=== PATIENT | male | born 1955 | race African-American/Black ===

== ENCOUNTER 2020-03-07 13:55 | Inpatient (IN) | payer SELFPAY ==
[~2020-03-07] VITALS: Ht 180.3 cm; Wt 77.1 kg
[2020-03-07 16:08] LABS: CALCIUM 8.9 mg/dL (8.5-10.1); CHLORIDE SERUM 100 mmol/L (98-107); CREATININE SERUM 1.1 mg/dL (0.7-1.3); GFR1 > 60 mL/min; GLUCOSE SERUM 85 mg/dL (74-106); POTASSIUM SERUM 3.8 mmol/L (3.5-5.1); SODIUM SERUM 135 mmol/L (136-145)
[2020-03-07 16:13] LABS: ALBUMIN 2.6 g/dL (3.4-5.0); ALKALINE PHOSPHATASE 105 U/L (46-116); ALT/SGPT 45 U/L (16-63); AST/SGOT 86 U/L (15-37); BILIRUBIN TOTAL 0.29 mg/dL (0.20-1.00); CHOLESTEROL 130 mg/dL (<200); TOTAL PROTEIN, SERUM 7.7 g/dL (6.4-8.2)
[2020-03-07 16:46] LABS: PLATELET COUNT 343 x10^3mcL (130-400); RED CELL DISTRIBUTION WIDTH 12.9 % (11.5-14.5)
[2020-03-07 18:19] LABS: MONOCYTE 20 % (0-7); SEGMENTED NEUTROPHILS 68 % (37-75)
[2020-03-07 18:20] LABS: PLATELET MORPHOLOGY PLATELETS NORMAL; rbc morphology (normal/abnorm) NORMAL (NORMAL)
[2020-03-07 22:11] LABS: APPEARANCE CSF CLEAR; COLOR CSF COLORLESS; WBC CSF 2 /cumm (0-5)
[2020-03-07 22:12] LABS: RBC CSF 85 /cumm (0)
[2020-03-07 22:23] LABS: APPEARANCE CSF CLEAR; COLOR CSF COLORLESS; RBC CSF 3 /cumm (0); WBC CSF 2 /cumm (0-5)
[2020-03-07 22:34] LABS: TOTAL PROTEIN CSF 26.6 mg/dL (15-45)
[2020-03-07 22:52] LABS: AMPHETAMINE QUAL UR NONE DETECTED (See below)
[2020-03-08 08:13] LABS: MAGNESIUM 2.9 mg/dL (1.8-2.4); PHOSPHOROUS 4.2 mg/dL (2.5-4.9)
[2020-03-08 08:18] LABS: T3 TOTAL 0.82 ng/mL
[2020-03-08 08:20] LABS: CHOLESTEROL/HDL RATIO 3.8
[2020-03-08 11:33] LABS: PLATELET COUNT 379 x10^3mcL (130-400); RED CELL DISTRIBUTION WIDTH 11.9 % (11.5-14.5)
[2020-03-08 11:52] LABS: BASOPHIL % 0.6 % (0-2)
[2020-03-08 12:31] LABS: CALCIUM 8.3 mg/dL (8.5-10.1); CARBON DIOXIDE 22.4 mmol/L (21-32); CHLORIDE SERUM 103 mmol/L (98-107); GFR1 > 60 mL/min; GLUCOSE SERUM 114 mg/dL (74-106); POTASSIUM SERUM 3.6 mmol/L (3.5-5.1); SODIUM SERUM 138 mmol/L (136-145)
[2020-03-08 13:29] VITALS: BP 123/78
[2020-03-08 15:22] VITALS: Ht 180.3 cm; Wt 77.1 kg
[2020-03-08 15:55] LABS: FREE T4 1.11 ng/dL (0.76-1.46); FREE THYROXINE INDEX 3.1 ug/dL (1.4-4.5); T4(THYROXINE) 8.7 ug/dL (4.7-13.3)
[2020-03-08 16:49] VITALS: BP 146/87
[2020-03-08 20:39] VITALS: BP 146/87
[2020-03-08 20:45] VITALS: BP 129/75
[2020-03-09 05:10] VITALS: BP 149/84
[2020-03-09 07:16] LABS: CARBON DIOXIDE 25.4 mmol/L (21-32); CHLORIDE SERUM 103 mmol/L (98-107); CREATININE SERUM 0.9 mg/dL (0.7-1.3); GFR1 > 60 mL/min; GLUCOSE SERUM 86 mg/dL (74-106); POTASSIUM SERUM 3.3 mmol/L (3.5-5.1); SODIUM SERUM 137 mmol/L (136-145)
[2020-03-09 07:31] LABS: PLATELET COUNT 388 x10^3mcL (152-348)
[2020-03-09 08:12] VITALS: BP 113/69
[2020-03-09 11:47] VITALS: BP 119/71
[2020-03-09 13:25] LABS: ATYPICAL LYMPH 1 %; BAND NEUTROPHIL 3 % (0-10); BASOPHIL 1 % (0-2); MONOCYTE 12 % (0-7); SEGMENTED NEUTROPHILS 50 % (37-75)
[2020-03-09 13:26] LABS: PLATELET MORPHOLOGY PLATELETS NORMAL; rbc morphology (normal/abnorm) NORMAL (NORMAL)
[2020-03-09 16:46] VITALS: BP 147/63
[2020-03-09 20:35] VITALS: BP 106/73
[2020-03-10 05:40] VITALS: BP 117/77
[2020-03-10 08:44] LABS: PLATELET COUNT 385 x10^3mcL (130-400); RED CELL DISTRIBUTION WIDTH 11.5 % (11.5-14.5)
[2020-03-10 08:46] LABS: CALCIUM 8.5 mg/dL (8.5-10.1); CARBON DIOXIDE 25.8 mmol/L (21-32); CHLORIDE SERUM 104 mmol/L (98-107); CREATININE SERUM 0.8 mg/dL (0.7-1.3); GFR1 > 60 mL/min; GLUCOSE SERUM 91 mg/dL (74-106); MAGNESIUM 2.1 mg/dL (1.8-2.4); PHOSPHOROUS 2.8 mg/dL (2.5-4.9); POTASSIUM SERUM 3.6 mmol/L (3.5-5.1); SODIUM SERUM 138 mmol/L (136-145)
[2020-03-10 09:00] VITALS: BP 117/77
[2020-03-10 12:02] LABS: microscopic required? NO
[2020-03-10 13:30] VITALS: BP 132/84
[2020-03-10 13:34] LABS: urine erythrocyte NEGATIVE (NEGATIVE)
[2020-03-10 14:38] LABS: MONOCYTE 8 % (0-7); SEGMENTED NEUTROPHILS 68 % (37-75)
[2020-03-10 14:50] LABS: rbc morphology (normal/abnorm) NORMAL (NORMAL)
[2020-03-10 17:19] VITALS: BP 143/87
[2020-03-10 21:22] VITALS: BP 137/86
[2020-03-11 06:16] VITALS: BP 146/93
[2020-03-11 08:47] LABS: BASOPHIL % 0.4 % (0.2-1.5); CALCIUM 8.8 mg/dL (8.5-10.1); CARBON DIOXIDE 24.5 mmol/L (21-32); CHLORIDE SERUM 104 mmol/L (98-107); CREATININE SERUM 0.7 mg/dL (0.7-1.3); GFR1 > 60 mL/min; GLUCOSE SERUM 91 mg/dL (74-106); MAGNESIUM 2.1 mg/dL (1.8-2.4); PHOSPHOROUS 2.8 mg/dL (2.5-4.9); PLATELET COUNT 396 x10^3mcL (152-348); POTASSIUM SERUM 4.1 mmol/L (3.5-5.1); RED CELL DISTRIBUTION WIDTH 12.7 % (12.1-16.2); SODIUM SERUM 137 mmol/L (136-145)
[2020-03-11 09:06] VITALS: BP 140/85
[2020-03-11 13:01] VITALS: BP 144/81
[2020-03-11] MEDS ORDERED: APAP/HYDROCODON1 T13 PO (14:44)
[2020-03-11] MEDS ORDERED: TYL325 PO (14:44)
[2020-03-11] MEDS ORDERED: LOV80I SC (14:44)
[2020-03-11] MEDS ORDERED: LEXAPRO10 MG PO (14:44)
[2020-03-11] MEDS ORDERED: BG FS (14:45)
[2020-03-11] MEDS ORDERED: COL100 PO (14:46)
[2020-03-11] MEDS ORDERED: HUMULIN R100 U/1 M1 SC (14:46)
[2020-03-11 15:59] LABS: rbc morphology (normal/abnorm) NORMAL (NORMAL)
[2020-03-11 17:16] VITALS: BP 149/90
[2020-03-11 20:49] VITALS: BP 127/79
[2020-03-12 06:01] VITALS: BP 132/82
[2020-03-12 07:16] LABS: BASOPHIL % 0.5 % (0.2-1.5); RED CELL DISTRIBUTION WIDTH 12.5 % (12.1-16.2)
[2020-03-12 07:41] LABS: PLATELET COUNT 404 x10^3mcL (152-348)
[2020-03-12 07:44] LABS: CARBON DIOXIDE 24.6 mmol/L (21-32); CHLORIDE SERUM 102 mmol/L (98-107); CREATININE SERUM 0.8 mg/dL (0.7-1.3); GFR1 > 60 mL/min; GLUCOSE SERUM 86 mg/dL (74-106); POTASSIUM SERUM 3.9 mmol/L (3.5-5.1); SODIUM SERUM 137 mmol/L (136-145)
[2020-03-12 08:38] VITALS: BP 139/73
[2020-03-12 11:03] LABS: CALCIUM 9.1 mg/dL (8.5-10.1)
[2020-03-12 11:29] LABS: rbc morphology (normal/abnorm) NORMAL (NORMAL)
[2020-03-12 12:19] VITALS: BP 121/80
[2020-03-12 16:42] VITALS: BP 129/85
[2020-03-12 23:57] VITALS: BP 122/80
[2020-03-13 04:57] VITALS: BP 110/68
[2020-03-13 09:03] VITALS: BP 126/79
[2020-03-13 09:13] LABS: BASOPHIL % 0.3 % (0.2-1.5); RED CELL DISTRIBUTION WIDTH 12.5 % (12.1-16.2)
[2020-03-13 09:19] LABS: CALCIUM 8.4 mg/dL (8.5-10.1); CARBON DIOXIDE 23.8 mmol/L (21-32); CHLORIDE SERUM 100 mmol/L (98-107); CREATININE SERUM 0.7 mg/dL (0.7-1.3); GFR1 > 60 mL/min; GLUCOSE SERUM 86 mg/dL (74-106); POTASSIUM SERUM 3.8 mmol/L (3.5-5.1); SODIUM SERUM 134 mmol/L (136-145)
[2020-03-13 09:59] LABS: PLATELET COUNT 441 x10^3mcL (152-348)
[2020-03-13 10:01] LABS: rbc morphology (normal/abnorm) NORMAL (NORMAL)
[2020-03-13 12:04] VITALS: BP 131/83
[2020-03-13 16:36] VITALS: BP 131/83
[2020-03-13 18:29] VITALS: BP 152/93
[2020-03-13 20:28] VITALS: BP 131/85
[2020-03-14 04:49] VITALS: BP 136/83
[2020-03-14] MEDS ORDERED: NEU300 PO (07:47)
[2020-03-14 08:00] LABS: BASOPHIL % 0.2 % (0.2-1.5); RED CELL DISTRIBUTION WIDTH 12.6 % (12.1-16.2)
[2020-03-14 08:25] LABS: CALCIUM 8.9 mg/dL (8.5-10.1); CARBON DIOXIDE 23.1 mmol/L (21-32); CHLORIDE SERUM 99 mmol/L (98-107); CREATININE SERUM 0.7 mg/dL (0.7-1.3); GFR1 > 60 mL/min; GLUCOSE SERUM 88 mg/dL (74-106); POTASSIUM SERUM 3.9 mmol/L (3.5-5.1); SODIUM SERUM 135 mmol/L (136-145)
[2020-03-14 08:37] LABS: PLATELET COUNT 473 x10^3mcL (152-348)
[2020-03-14 09:00] VITALS: BP 103/72
[2020-03-14 12:06] VITALS: BP 126/82
[2020-03-14 17:25] VITALS: BP 150/94
[2020-03-14 20:15] VITALS: BP 130/86
[2020-03-15 05:06] VITALS: BP 134/80
[2020-03-15 08:14] LABS: BASOPHIL % 1.3 % (0.2-1.5); RED CELL DISTRIBUTION WIDTH 12.8 % (12.1-16.2)
[2020-03-15 08:21] VITALS: BP 140/87
[2020-03-15 08:25] LABS: CALCIUM 9.1 mg/dL (8.5-10.1); CARBON DIOXIDE 27.5 mmol/L (21-32); CHLORIDE SERUM 100 mmol/L (98-107); CREATININE SERUM 0.8 mg/dL (0.7-1.3); GFR1 > 60 mL/min; GLUCOSE SERUM 89 mg/dL (74-106); SODIUM SERUM 134 mmol/L (136-145)
[2020-03-15 08:56] LABS: MAGNESIUM 2.1 mg/dL (1.8-2.4); PHOSPHOROUS 3.7 mg/dL (2.5-4.9)
[2020-03-15 11:57] VITALS: BP 134/78
[2020-03-15 12:11] LABS: PLATELET COUNT 535 x10^3mcL (152-348); rbc morphology (normal/abnorm) NORMAL (NORMAL)
[2020-03-15 16:08] VITALS: BP 125/82
[2020-03-15 20:36] VITALS: BP 122/79
[2020-03-16 05:26] VITALS: BP 127/77
[2020-03-16 08:16] VITALS: BP 141/85
[2020-03-16 09:00] LABS: RED CELL DISTRIBUTION WIDTH 12.6 % (12.1-16.2)
[2020-03-16 09:10] LABS: rbc morphology (normal/abnorm) NORMAL (NORMAL)
[2020-03-16 09:25] LABS: CALCIUM 9.3 mg/dL (8.5-10.1); CARBON DIOXIDE 27.4 mmol/L (21-32); CHLORIDE SERUM 100 mmol/L (98-107); CREATININE SERUM 0.7 mg/dL (0.7-1.3); GFR1 > 60 mL/min; GLUCOSE SERUM 80 mg/dL (74-106); POTASSIUM SERUM 4.1 mmol/L (3.5-5.1); SODIUM SERUM 137 mmol/L (136-145)
[2020-03-16 11:54] VITALS: BP 121/77
[2020-03-16 13:40] LABS: PLATELET COUNT 550 x10^3mcL (152-348)
[2020-03-16 15:42] VITALS: BP 134/85
[2020-03-16 20:28] VITALS: BP 128/80
[2020-03-17 05:30] VITALS: BP 154/89
[2020-03-17 09:08] VITALS: BP 121/81
[2020-03-17 12:26] VITALS: BP 116/74
[2020-03-17 17:38] VITALS: BP 128/76
[2020-03-17 21:44] VITALS: BP 139/80
[2020-03-18 05:58] VITALS: BP 141/81
[2020-03-18 08:51] VITALS: BP 138/86
[2020-03-18 12:07] VITALS: BP 152/81
[2020-03-18 16:48] VITALS: BP 149/51
[2020-03-18 20:11] VITALS: BP 153/81
[2020-03-19 04:40] VITALS: BP 112/70
[2020-03-19 10:13] VITALS: BP 125/83
[2020-03-19 12:00] VITALS: BP 139/84
[2020-03-19 12:06] VITALS: BP 139/83
[2020-03-19 16:51] VITALS: BP 129/72
[2020-03-19 20:47] VITALS: BP 140/81
[2020-03-20 05:23] VITALS: BP 155/83
[2020-03-20 08:52] VITALS: BP 88/53
[2020-03-20 12:18] VITALS: BP 128/80
[2020-03-20 16:49] VITALS: BP 147/102
[2020-03-20 21:55] VITALS: BP 154/83
[2020-03-21 06:07] VITALS: BP 132/82
[2020-03-21 09:43] VITALS: BP 114/84
[2020-03-21 12:07] VITALS: BP 139/82
[2020-03-21 16:20] VITALS: BP 140/80
[2020-03-21 21:19] VITALS: BP 163/85
[2020-03-22 05:34] VITALS: BP 153/91
[2020-03-22 08:44] VITALS: BP 142/85
[2020-03-22 11:59] VITALS: BP 126/72
[2020-03-22 17:22] VITALS: BP 108/65
[2020-03-22 21:06] VITALS: BP 140/88
[2020-03-23 05:36] VITALS: BP 152/82
[2020-03-23 08:37] VITALS: BP 138/78
[2020-03-23 13:00] VITALS: BP 148/87
[2020-03-23 17:12] VITALS: BP 144/81
[2020-03-23 19:54] VITALS: BP 131/81
[2020-03-24] VITALS: BP 143/69
[2020-03-24 05:29] VITALS: BP 143/87
[2020-03-24 09:08] VITALS: BP 154/83
[2020-03-24 12:25] VITALS: BP 158/87
[2020-03-24 16:17] VITALS: BP 146/80
[2020-03-24 20:49] VITALS: BP 137/81
[2020-03-25 05:32] VITALS: BP 129/89
[2020-03-25 08:40] VITALS: BP 145/79
[2020-03-25 10:57] LABS: BASOPHIL % 0.5 % (0.2-1.5); RED CELL DISTRIBUTION WIDTH 13.2 % (12.1-16.2)
[2020-03-25 11:38] LABS: PLATELET COUNT 437 x10^3mcL (152-348)
[2020-03-25 11:48] LABS: CALCIUM 8.8 mg/dL (8.5-10.1); CARBON DIOXIDE 23.1 mmol/L (21-32); CHLORIDE SERUM 103 mmol/L (98-107); CREATININE SERUM 0.8 mg/dL (0.7-1.3); GFR1 > 60 mL/min; GLUCOSE SERUM 112 mg/dL (74-106); POTASSIUM SERUM 3.5 mmol/L (3.5-5.1); SODIUM SERUM 140 mmol/L (136-145)
[2020-03-25 12:22] VITALS: BP 159/87
[2020-03-25 16:18] VITALS: BP 154/91
[2020-03-26 01:07] VITALS: BP 129/89
[2020-03-26 08:40] VITALS: BP 137/76
[2020-03-26 09:24] LABS: BASOPHIL % 0.3 % (0.2-1.5); PLATELET COUNT 380 x10^3mcL (152-348); RED CELL DISTRIBUTION WIDTH 13.5 % (12.1-16.2)
[2020-03-26 09:38] LABS: CALCIUM 8.5 mg/dL (8.5-10.1); CARBON DIOXIDE 26.7 mmol/L (21-32); CHLORIDE SERUM 102 mmol/L (98-107); CREATININE SERUM 0.8 mg/dL (0.7-1.3); GFR1 > 60 mL/min; GLUCOSE SERUM 90 mg/dL (74-106); POTASSIUM SERUM 4.2 mmol/L (3.5-5.1); SODIUM SERUM 138 mmol/L (136-145)
[2020-03-26 13:24] VITALS: BP 156/90
[2020-03-26 17:18] VITALS: BP 148/86
[2020-03-26 21:37] VITALS: BP 134/69
[2020-03-27 05:53] VITALS: BP 163/90
[2020-03-27 08:59] VITALS: BP 175/104
[2020-03-27 09:17] VITALS: BP 134/74
[2020-03-27 11:53] VITALS: BP 135/78
[2020-03-27 16:28] VITALS: BP 155/86
[2020-03-27 21:22] VITALS: BP 137/81
[2020-03-28 06:07] VITALS: BP 180/94
== END 2020-03-28 08:05 | disposition left against medical advice (07) | DRG 177 ==
LOC: EDBD 13:55 → ED 13:55 → DU 23:08 → MU 23:08 → DU 03-08 15:23
PROVIDERS: Internal Medicine; Specialist; ADMIT Family Medicine; ATTEND Family Medicine
PROC: 009U3ZX Drainage of Spinal Canal, Percutaneous Approach, Diagnostic (ICD-10-PCS; principal; 2020-03-07)
DX: U07.1 COVID-19 (principal); E43 Unspecified severe protein-calorie malnutrition; E87.1 Hypo-osmolality and hyponatremia; Z96.643 Presence of artificial hip joint, bilateral; E11.65 Type 2 diabetes mellitus with hyperglycemia; Z68.23 Body mass index [BMI] 23.0-23.9, adult; F32.9 Major depressive disorder, single episode, unspecified; Z53.29 Procedure and treatment not carried out because of patient's decision for other reasons
CPT/HCPCS: 36600; 82962; 83880; 84439; 85378; 86788; 86789; 87804; 97110-GP; 97112-GP; 97116-GP; 97530-GP; G0378; G0480; J1100; J1650; J1815; J3475; J3490; Q9967; U0003